=== PATIENT | female | born 1980 ===

== ENCOUNTER 2017-03-24 16:18 | Inpatient (IN) | payer MEDICAID ==
--- NOTE | 2017-03-24 17:36 | ED PDOC ---
HPI: Psych/Substance Abuse Time Seen by Provider: 03/24/17 16:27 Chief Complaint (Nursing): Psychiatric Evaluation Chief Complaint (Provider): Psychiatric Evaluation History Per: Patient Additional Complaint(s): 36 y/o female with past medical history of depression presents to the ED via BLS for psychiatric evaluation. Patient states that she had a cat for 18 years that about a month ago, which is the reason of her depression. Her mother and boyfriend are not being supportive, thus making her feel more depressed. According to EMS patient make suicidal threats but did not mean them. Denies suicidal and homicidal ideation and any further medical complaints. Past Medical History Reviewed: Historical Data, Nursing Documentation, Vital Signs Vital Signs: Last Vital Signs Temp 98.0 F 03/24/17 16:24 Pulse 134 H 03/24/17 16:24 Resp 16 03/24/17 16:24 BP 139/90 03/24/17 16:24 Pulse Ox 98 03/24/17 16:24 - Medical History PMH: Anxiety, Asthma, Back Problems, Cardia Arrhythmia, Depression, Seizures Denies: HIV, Chronic Kidney Disease - Surgical History Surgical History: No Surg Hx - Family History Family History: States: Unknown Family Hx - Social History Current smoker - smoking cessation education provided: No (Never smoked) Alcohol: None Drugs: Denies - Home Medications Home Medications: Ambulatory Orders Medication Instructions Recorded Fexofenadine HCl [Deirdre NF] 180 mg PO DAILY 03/07/15 Albuterol Sulfate [Proair Hfa] 2 puff IH PRN 03/08/15 Budesonide/Formoterol Fumarate 2 puff IH DAILY 03/08/15 [Symbicort 80-4.5 Mcg Inhaler] QUEtiapine [SEROquel] 25 mg PO HS #0 tab 03/09/15 - Allergies Allergies/Adverse Reactions: Allergies Allergy/AdvReac Type Severity Reaction Status Date / Time tramadol Allergy DIZZINESS Verified 03/24/17 16:34 Review of Systems ROS Statement: Except As Marked, All Systems Reviewed And Found Negative (As per HPI, otherwise negative) Constitutional: Negative for: Fever, Chills Psych: Positive for: Depression. Negative for: Suicidal ideation (homicidal ideation) Physical Exam - Reviewed Nursing Documentation Reviewed: Yes Vital Signs Reviewed: Yes - Physical Exam Appears: Positive for: Non-toxic, In Acute Distress Head Exam: Positive for: ATRAUMATIC, NORMAL INSPECTION, NORMOCEPHALIC Skin: Positive for: Normal Color, Warm, Dry Eye Exam: Positive for: Normal appearance ENT: Positive for: Normal ENT Inspection Neck: Positive for: Normal Cardiovascular/Chest: Positive for: Regular Rate, Rhythm. Negative for: Murmur Respiratory: Positive for: Normal Breath Sounds. Negative for: Accessory Muscle Use, Respiratory Distress Back: Positive for: Normal Inspection Neurologic/Psych: Positive for: Alert, Oriented (x3), Gait, Other (Patient is depressed and is crying). Negative for: Facial Droop - Laboratory Results Result Diagrams: 03/24/17 22:14 03/24/17 22:14 - ECG O2 Sat by Pulse Oximetry: 98 (RA) Pulse Ox Interpretation: Normal Medical Decision Making Medical Decision Making: Time: 17:55 Plan: Lorazepam 1mg PO Reevaluation 19:00 Pt reports feeling better after ativan. 20:50 Pt has been evaluated by crisis. No disposition has been provided. 20:55 Discussed with Jessica, renal social worker. Pt is going to be offered admission. 21:45 Pt declined admission and will be referred to [facility]. Labs ordered. 23:55 Jessica states she will re-evaluate if patient would like to sign in yet. 00:00 Endorsed pending evaluation by [facility]. Scribe Attestation: Documented by Unruly Rivera acting as a scribe for DEWEY Younger. MD Puente Attestation: All medical record entries made by the Scribe were at my direction and personally dictated by me. I have reviewed the chart and agree that the record accurately reflects my personal performance of the history, physical exam, medical decision making, and the department course for this patient. I have also personally directed, reviewed, and agree with the discharge instructions and disposition. Disposition - Clinical Impression Clinical Impression: Depression - Patient ED Disposition Is Patient to be Admitted: Transfer of Care - Disposition Disposition: Transfer of Care Disposition Time: 23:52 Condition: STABLE Forms: [facility] (Vietnamese)
[2017-03-24 22:17] LABS: HEMATOCRIT 39.4 % (34.0-47.0); MEAN CELL VOLUME 85.7 fl (81.0-99.0); MEAN CORPUSCULAR HEMOGLOBIN 27.7 pg (27.0-31.0); MEAN CORPUSCULAR HGB CONC 32.3 g/dL (33.0-37.0); RED CELL DISTRIBUTION WIDTH 15.3 % (11.5-14.5); WHITE BLOOD COUNT 9.8 K/uL (4.8-10.8)
[2017-03-24 22:27] LABS: ALB/GLOB RATIO 1.6 (1.0-2.1); ALCOHOL SERUM < 10 mg/dl (0-10); ALKALINE PHOSPHATASE 76 U/L (38-126); ALT/SGPT 45 U/L (9-52); AST/SGOT 28 U/L (14-36); BILIRUBIN,TOTAL 0.6 mg/dl (0.2-1.3); BLOOD UREA NITROGEN 15 mg/dl (7-17); CALCIUM 9.6 mg/dL (8.4-10.2); CARBON DIOXIDE 19 mmol/L (22-30); CHLORIDE 106 mmol/L (98-107); GFR AFRICAN-AMERICAN > 60; GLUCOSE,RANDOM 67 mg/dL (65-105); SODIUM 142 mmol/l (132-148); TOTAL PROTEIN 8.4 G/DL (6.3-8.2)
[2017-03-24 23:22] LABS: URINE BACTERIA RARE (<OCC); URINE BILIRUBIN NEGATIVE (NEGATIVE); URINE BLOOD MODERATE (NEGATIVE); URINE COLOR YELLOW (YELLOW); URINE GLUCOSE (UA) NEG (Normal); URINE KETONE 80 mg/dL (NEGATIVE); URINE LEUKOCYTE ESTERASE NEG Leu/uL (Negative); URINE PROTEIN 30 mg/dL (NEGATIVE); URINE UROBILINOGEN 0.2-1.0 mg/dL (0.2-1.0); WBC URINE 2 /hpf (0-5)
[2017-03-24 23:23] LABS: RBC URINE 5 /hpf (0-3)
[2017-03-25 00:41] VITALS: O2SAT 100
[2017-03-25] MEDS ORDERED: Magnesium Hydroxide Susp 30 ml UD PO PRN (00:54)
[2017-03-25] MEDS ORDERED: DiphenhydrAMINE 50 mg/ml Inj IM PRN (00:54)
--- NOTE | 2017-03-25 01:18 | PCM.BM ---
<Stephanie Braden - Last Filed: 03/25/17 01:16> Treatment Plan Problems - Problems identified on initial assessmt hopelessness/helplessness Date Initiated: 03/25/17 Time Initiated: Assessment reference: NA Status: Active Social Isolation Date Initiated: 03/25/17 Time Initiated: :18 Assessment reference: NA Treatment assets and liabiliti Patient Assests: cooperative, ADL independent, negotiates basic needs, cognitively intact Patient Liabilities: substance abuse - Milieu Protocol Maintain good personal hygiene: daily Encourage regular showers, daily Remind patient to perform daily oral care, daily Assist patient to perform ADL's Conduct patient checks and document Observation sheet: Q15 minutes Maintain personal safety: every shift Educate patient to report safety concerns to staff, every shift Monitor environment for contraband/sharps Medication safety: Monitor for expected outcome, potential side effects: every shift, Assess barriers to learning: every shift, Assess readiness for medication education: every shift <Edouard Velez J - Last Filed: 03/26/17 15:43> Family Contact Family involvement: Famliy/SO not involved Family contact: Patient declines to allow family contact at present Family contact name: Pt refused. - Outside Agency Agency 1 Agency contact name: Dr. Calvo [facility] Agency contact number: [phone] - Goals for Treatment Patient goals for treatment: Pt did not have goals as she felt that we were holding her without any options. Pt's goal is to return home. Discharge/Continuing Care - Education Needs Education Needs: Patient Medication, Patient Coping Skills, Patient Community resources, Patient Personal Hygiene/Grooming, Patient Aftercare Safety Plan - Discharge Discharge Criteria: Tolerates medication w/o severe side effects, Free of Suicidal thoughts, Free of paranoid thoughts, Free of agitation, Normal sleep pattern, Ability to care for self, Reduction of target symptoms Discharge to:: Home - Treatment Team Participation Was Patient/Family/SO present at Treatment Team Meeting: Yes
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
--- NOTE | 2017-03-25 19:00 | CARD ---
APPROVED REPORT EKG Measurement Heart [id number] <Conclusion> Normal sinus rhythm Possible Left atrial enlargement Borderline ECG
[2017-03-26 08:01] LABS: T4 8.46 ug/dl (5.5-11.0)
[2017-03-26 08:15] LABS: THYROID STIMULATING HORMONE 0.8 mIU/ML (0.46-4.68)
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
[2017-03-26] MEDS: Lidocaine 5% Patch TD SCH (21:13)
[2017-03-27] MEDS: Lidocaine 5% Patch TD SCH (10:50)
--- NOTE | 2017-03-27 19:51 | PCM.PYCHPN ---
Psychiatric Progress Note - Psychiatric Progress Note Patient seen today, length of contact: pt evalauted discussed with team chart reviewed Problems Identified/Issues Discussed: feeling depressed after of cat reportedly first episode of dealing with , reports feeling better on sertraline 150mg po day , tearful, crying, reported panic Medical Problems: per chart Diagnostic Results: per psychiatry per medicine per nursing per social work Medication Change: Yes (increase sertraline to 150mg po day, continue remerone 7.5mg po hs) Medical Record Reviewed: Yes Consults ordered or reviewed: per chart Mental Status Examination - Cognitive Function Orientation: Person, Place, Situation Attention: WNL Concentration: WNL Association: WN Fund of Knowledge: [facility] Decription of patient's judgement and insights: impaired - Mood Mood: Depressed, Anxious - Affect Affect: Constricted, Depressed - Speech Speech: Soft - Formal Thought Process Formal Thought Process: Paranoia, Circumstantial - Suicidal Ideation Suicidal Ideation: No - Homicidal Ideation Homicidal Ideation: No Goal/Treatment Plan - Goal/Treatment Plan Need for Continued Stay: Severe depression anxiety, Discharge may exacerbated symptoms Progress Toward Problem(s) and Goals/Treatment Plan: inpt milieu increase sertraline to 150mg po am starting 03/27/17 continue remeron 7.5mg po hs for sleep adjust rx per status\ discharge planning in progress Estimated Date of D/C: 03/30/17 - Smoking Cessation Smoking Cessation Initiated: No Reason for not providing: deferred
[2017-03-28] MEDS: Lidocaine 5% Patch TD SCH (08:58)
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
[2017-03-29] MEDS: Lidocaine 5% Patch TD SCH (09:49)
[2017-03-29] MEDS ORDERED: Petrolatum UD PAK TOP PRN ×2 (13:15→15:34)
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
[2017-03-30] MEDS: Lidocaine 5% Patch TD SCH (09:19)
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
[2017-03-31] MEDS: Lidocaine 5% Patch TD SCH (09:35)
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
[2017-04-01] MEDS: Lidocaine 5% Patch TD SCH (09:51)
--- NOTE | 2017-04-01 14:51 | PCM.PYCHPN ---
Psychiatric Progress Note - Psychiatric Progress Note Patient seen today, length of contact: pt evalauted discussed with team chart reviewed Patient Chief Complaint: I will try to get back on my feet Problems Identified/Issues Discussed: PT SON EVALUATION APPEARS CALMER LESS ANXIOUS PT PRESENTING WITH MORE POSITIVE ATTITUDE AND ABLE TO VERBALIZE SOME OF THE COPING SKILLS WITH HER CURRENT STRESSORS DENIED SIDE EFFECTS OF MEDICATIONS DENIED S/HI Medical Problems: high level of cholesterol and triglycerides DSM 5 Symptoms Update: MAJOR DEPRESSION PTSD Medication Change: No Medical Record Reviewed: Yes Mental Status Examination - Cognitive Function Orientation: Person, Place, Situation, Time Attention: WNL Concentration: WNL Association: WNL Fund of Knowledge: WN - Mood Mood: Anxious, Neutral - Affect Affect: Constricted, Depressed - Speech Speech: Soft - Formal Thought Process Formal Thought Process: Circumstantial Psychotic Thoughts and Behaviors: DENIED ANY CURRENT PERCEPTUAL DISTURBANCES, NON ELICITED - Suicidal Ideation Suicidal Ideation: No - Homicidal Ideation Homicidal Ideation: No Goal/Treatment Plan - Goal/Treatment Plan Need for Continued Stay: Severe depression anxiety, Discharge may exacerbated symptoms Progress Toward Problem(s) and Goals/Treatment Plan: continue with zoloft 150mg remeron 7.5mg klonopin 0.50 mg tid prn for anxiety CBT group and supportive therapy Estimated Date of D/C: 04/01/17
[2017-04-02] MEDS: Lidocaine 5% Patch TD SCH (09:13)
[2017-04-02 12:07] VITALS: BP 118/79; PULSE 106; RESP 20; TEMP 96
--- NOTE | 2017-04-02 13:58 | PCM.PYCHDC ---
Mental Status Examination - Mental Status Examination Orientation: Person, Place, Situation Memory: Intact Mood: Neutral Affect: Broad Speech: Appropriate Attention: WNL Concentration: WNL Association: WNL Fund of Knowledge: WNL Formal Thought Process: No Impairment Description of patient's judgement and insight: fair insight and judgement Psychotic Thoughts and Behaviors: DENIED ANY CURRENT PERCEPTUAL DISTURBANCES, NON ELICITED Suicidal Ideation: No Current Homicidal Ideation?: No Discharge Summary - Discharge Note Reason for Hospitalization: pt with previous psychiatric disgnosis of agorophobia and depression, reportedly currently compliant with her medications, zoloft and klonopin and fiollowing up with private psychiatrist, pt indicated that she has been increasingly depressed since her cat due to oral cancer, pt reported decreased sleep with early insomnia, decreased appetite with 26 lb wait loss in past two months, low energy crying spells increase panic attacks passive suicidal ideations no plan denied homicidal ideations, denied manic or psychotic symptoms, denied substance use, utox positive for cannabis Consultations:: List each consultation separately and include: 1. Reason for request. 2. Findings. 3. Follow-up Consultations: family practice Summary of Hospital Course include:: 1. Description of specific treatment plan utilized for patients during their course of treatmen. 2. Summarize the time- course for resolution of acute symptoms and/or regressed behaviors. 3. Describe issues identified and worked on during hospitalization. 4. Describe medication utilized. 5. Describe medical problems identified and treated. 6. Reassessment of suicide risk Summary of Hospital Course: pt on admission was started on remeron 7.5mg qhs, zoloft 150mg and klonopin 0.25mg prn tid for anxiety CBT group and supportive therapy was provided pt was compliant with treatment no reported side effects of medications on discharge mental ststus was stable denied suicidal or homicidal ideations denied perceptual disturbances at current mental status pt not danger to self or others - Final Diagnosis (DSM 5) Condition upon Discharge: STABLE Disposition: Trans to Other Acute Care Hosp Follow-up Treatment Plan: continue with zoloft 150mg remeron 7.5mg klonopin 0.50 mg tid prn for anxiety CBT group and supportive therapy Prescriptions/Medication Reconciliation: clonazePAM [Klonopin] 0.25 mg PO BID 3 Days #7 tab Mirtazapine [Remeron] 7.5 mg PO HS 30 Days #15 tab Sertraline [Zoloft] 150 mg PO DAILY 30 Days #90 tab - Antipsychotic Medications Pt discharged on 2 or more routine antipsychotic medications: No
== END 2017-04-02 16:45 | disposition short-term general hospital (02) | DRG 426 ==
LOC: H.ER 16:18 → H.ERHOLD 03-25 00:05 → H.PSYCH 03-25 00:53
PROVIDERS: ADMIT Psychiatry & Neurology Psychiatry; ATTEND Psychiatry & Neurology Psychiatry
PROC: GZHZZZZ Group Psychotherapy (ICD-10-PCS; principal; 2017-03-25)
PROC: GZ58ZZZ Individual Psychotherapy, Cognitive-Behavioral (ICD-10-PCS; 2017-03-25)
PROC: GZ56ZZZ Individual Psychotherapy, Supportive (ICD-10-PCS; 2017-03-25)
DX: F32.9 Major depressive disorder, single episode, unspecified (principal); R45.851 Suicidal ideations; F43.10 Post-traumatic stress disorder, unspecified; F40.01 Agoraphobia with panic disorder; J45.909 Unspecified asthma, uncomplicated; F12.90 Cannabis use, unspecified, uncomplicated; Z88.6 Allergy status to analgesic agent

== ENCOUNTER 2017-04-11 14:04 | Emergency (ER) | payer MEDICAID ==
[2017-04-11 14:10] VITALS: BP 115/47; PULSE 84; RESP 20; TEMP 97.1; O2SAT 98
--- NOTE | 2017-04-11 14:33 | ED PDOC ---
HPI: General Adult Time Seen by Provider: 04/11/17 14:09 Chief Complaint (Nursing): Cough, Cold, Congestion Chief Complaint (Provider): Cough, Cold, Congestion History Per: Patient History/Exam Limitations: no limitations Onset/Duration Of Symptoms: Days (x 4 to 5 days) Current Symptoms Are (Timing): Still Present Additional Complaint(s): Lizzeth is a 36 year old female who presents to the emergency department complaining of green sputum production associated with productive cough for 4-5 days. Patient states she took [id number] medications without relief. Denies fever, hemoptysis, recent travels, sick contacts, and chest pain. PMD: No family Provider Past Medical History Reviewed: Historical Data, Nursing Documentation, Vital Signs Vital Signs: Last Vital Signs Temp 97.1 F L 04/11/17 14:06 Pulse 84 04/11/17 14:06 Resp 20 04/11/17 14:06 BP 115/47 L 04/11/17 14:06 Pulse Ox 98 04/11/17 14:38 - Medical History PMH: Anxiety, Asthma, Back Problems, Cardia Arrhythmia, Depression, Seizures ( adverse reaction to tramadol) Denies: Diabetes, Hepatitis, HIV, HTN, Chronic Kidney Disease, Sexually Transmitted Disease - Surgical History Surgical History: No Surg Hx - Family History Family History: States: Unknown Family Hx - Social History Current smoker - smoking cessation education provided: No Ex-Smoker (has not smoked in the last 12 months): No - Home Medications Home Medications: Ambulatory Orders Medication Instructions Recorded Fexofenadine HCl [Deirdre NF] 03/25/17 Mirtazapine [Remeron] 7.5 mg PO HS 30 Days #15 tab 03/30/17 Sertraline [Zoloft] 150 mg PO DAILY 30 Days #90 tab 03/30/17 clonazePAM [Klonopin] 0.25 mg PO BID 3 Days #7 tab 03/30/17 Albuterol HFA [Ventolin HFA 90 2 puff IH [id number] PRN #90 puff 04/11/17 mcg/actuation (8 g)] Azithromycin [Zithromax] 250 mg PO DAILY #6 tab 04/11/17 Promethazine DM [Phenergan DM 5 - 10 ml PO Q8 PRN #120 ml 04/11/17 Syrup] - Allergies Allergies/Adverse Reactions: Allergies Allergy/AdvReac Type Severity Reaction Status Date / Time tramadol Allergy DIZZINESS Verified 04/11/17 14:06 Review of Systems ROS Statement: Except As Marked, All Systems Reviewed And Found Negative Constitutional: Negative for: Fever Cardiovascular: Negative for: Chest Pain Respiratory: Positive for: Cough, Sputum (Green). Negative for: Hemoptysis Physical Exam - Reviewed Nursing Documentation Reviewed: Yes Vital Signs Reviewed: Yes - Physical Exam ENT: Positive for: Normal ENT Inspection Cardiovascular/Chest: Positive for: Regular Rate, Rhythm. Negative for: Murmur Respiratory: Positive for: Normal Breath Sounds. Negative for: Respiratory Distress Neurologic/Psych: Positive for: Alert, Oriented (x 3) - ECG O2 Sat by Pulse Oximetry: 98 (RA) Pulse Ox Interpretation: Normal Medical Decision Making Medical Decision Making: Upon provider evaluation patient is medically stable, and requires no further treatment in the ED at this time. Patient will be discharged with Rx for Ventolin, Zithromax, and Phenergan DM. Counseling was provided and all questions were answered regarding diagnosis and need for follow up with PCP. There is agreement to discharge plan. Return if symptoms persist or worsen. Scribe Attestation: Documented by Aashish Lozano, acting as a scribe for Billy Morales PA-C Provider Scribe Attestation: All medical record entries made by the Scribe were at my direction and personally dictated by me. I have reviewed the chart and agree that the record accurately reflects my personal performance of the history, physical exam, medical decision making, and the department course for this patient. I have also personally directed, reviewed, and agree with the discharge instructions and disposition. Disposition - Clinical Impression Clinical Impression: Acute bronchitis - Patient ED Disposition Is Patient to be Admitted: No - Disposition Referrals: Isidoro Copeland [Outside] Disposition: Routine/Home Disposition Time: 14:17 Condition: STABLE Additional Instructions: Follow up with PMD in 2 days for further evaluation. Return to ED immediately if symptoms persist or any other concerns arise. Prescriptions: Albuterol HFA [Ventolin HFA 90 mcg/actuation (8 g)] 2 puff IH [id number] PRN #90 puff PRN Reason: Cough Azithromycin [Zithromax] 250 mg PO DAILY #6 tab Promethazine DM [Phenergan DM Syrup] 5 - 10 ml PO Q8 PRN #120 ml PRN Reason: Cough Instructions: Acute Bronchitis (ED) Forms: [facility] (Malian) Print Language: OCCITAN
== END 2017-04-11 14:31 | disposition home or self-care (01) ==
LOC: H.ER 14:04
DX: J20.9 Acute bronchitis, unspecified (principal); F32.9 Major depressive disorder, single episode, unspecified; F41.9 Anxiety disorder, unspecified; J45.909 Unspecified asthma, uncomplicated; Z87.891 Personal history of nicotine dependence

== ENCOUNTER 2017-06-23 19:47 | Emergency (ER) | payer MEDICAID ==
[2017-06-23 20:36] VITALS: BP 119/85; PULSE 93; RESP 16; TEMP 97.8; O2SAT 98
--- NOTE | 2017-06-23 21:37 | ED PDOC ---
HPI: Back Time Seen by Provider: 06/23/17 20:43 Chief Complaint (Nursing): Back Pain Chief Complaint (Provider): Back Pain History Per: Patient History/Exam Limitations: no limitations Onset/Duration Of Symptoms: Worse Since (today) Current Symptoms Are (Timing): Still Present Previous Symptoms: Back Pain Additional Complaint(s): Patient is a 36 y/o female who presents with pain to the right lower back, ongoing for weeks but worsened today. States on 06/10 she fell down 3 stairs and has had the pain since then. No head injury or LOC. Patient reports taking Tylenol for pain control, with no relief. Last dose was 3:30PM this afternoon. Pain is now radiating down her right thigh. Of note, patient has a history of herniated discs in the lumbar spine and has had low back pain in the past, but it has never been right-sided. Otherwise: (-) numbness or weakness of lower extremities, (-) incontinence, (-) vomiting, (-) fever, (-) dysuria, (-) hematuria/frequency/urgency (-) nausea (-) vomiting (-)abdominal pain (-) saddle anesthesia. No prior history of cancer. PMD: Vladislav Rangel Past Medical History Reviewed: Historical Data, Nursing Documentation, Vital Signs Vital Signs: Last Vital Signs Temp 97.8 F 06/23/17 20:32 Pulse 93 H 06/23/17 20:32 Resp 16 06/23/17 20:32 BP 119/85 06/23/17 20:32 Pulse Ox 98 06/23/17 20:32 - Medical History PMH: Anxiety, Asthma, Back Problems, Cardia Arrhythmia, Depression, Seizures ( adverse reaction to tramadol) Denies: Diabetes, Hepatitis, HIV, HTN, Chronic Kidney Disease, Sexually Transmitted Disease - Surgical History Surgical History: No Surg Hx - Family History Family History: States: Unknown Family Hx - Home Medications Home Medications: Ambulatory Orders Medication Instructions Recorded Fexofenadine HCl [Deirdre NF] 03/25/17 Mirtazapine [Remeron] 7.5 mg PO HS 30 Days #15 tab 03/30/17 Sertraline [Zoloft] 150 mg PO DAILY 30 Days #90 tab 03/30/17 clonazePAM [Klonopin] 0.25 mg PO BID 3 Days #7 tab 03/30/17 Albuterol HFA [Ventolin HFA 90 2 puff IH [id number] PRN #90 puff 04/11/17 mcg/actuation (8 g)] Azithromycin [Zithromax] 250 mg PO DAILY #6 tab 04/11/17 Promethazine DM [Phenergan DM 5 - 10 ml PO Q8 PRN #120 ml 04/11/17 Syrup] Cyclobenzaprine [Cyclobenzaprine 10 mg PO Q8 #12 tab 06/23/17 HCl] Meloxicam [Mobic] 15 mg PO DAILY #10 tab 06/23/17 - Allergies Allergies/Adverse Reactions: Allergies Allergy/AdvReac Type Severity Reaction Status Date / Time tramadol Allergy DIZZINESS Verified 04/11/17 14:06 Review of Systems ROS Statement: Except As Marked, All Systems Reviewed And Found Negative Constitutional: Negative for: Fever, Chills, Sweats Cardiovascular: Negative for: Chest Pain, Palpitations Respiratory: Negative for: Cough, Shortness of Breath Gastrointestinal: Negative for: Nausea, Vomiting, Abdominal Pain Genitourinary Female: Negative for: Dysuria, Incontinence, Hematuria Musculoskeletal: Positive for: Back Pain, Leg Pain Neurological: Negative for: Weakness, Numbness Physical Exam - Reviewed Nursing Documentation Reviewed: Yes Vital Signs Reviewed: Yes - Physical Exam Comments: GENERAL APPEARANCE: Patient is awake, alert, oriented x 3, in no acute distress. Ambulatory in ED with steady gait. SKIN: Warm, dry; (-) cyanosis. EYES: (-) conjunctival pallor. ENMT: Mucous membranes moist. NECK: Supple (-) tenderness, (-) stiffness, (-) lymphadenopathy. CHEST AND RESPIRATORY: (-) rales, (-) rhonchi, (-) wheezes; breath sounds equal bilaterally. HEART AND CARDIOVASCULAR: (-) irregularity; (-) murmur, (-) gallop. ABDOMEN AND GI: Soft; (-) tenderness; (-) palpable mass. BACK: (+) right paralumbar tenderness, (+) right sciatic notch tenderness, (-) midline tenderness, (-) CVA tenderness. EXTREMITIES: (-) deformity. Distal pulses good bilaterally. NEURO AND PSYCH: Mental status as above. Intact sensation bilaterally; normal strength in extension of the knees, plantar and dorsiflexion of the toes. - ECG O2 Sat by Pulse Oximetry: 98 (RA) Pulse Ox Interpretation: Normal Medical Decision Making Medical Decision Making: Clinical Impression: Acute on chronic back pain Time: 21:26 Initial Plan: * Flexeril 10 mg PO (Patient states she is not driving home) * Toradol 30 mg IM * Reevaluation 2229 On re-evaluation, patient reports slight improvement of pain and is requesting additional medication. 5mg PO Valium administered. 0 On re-evaluation, patient reports improvement of symptoms, ambulatory in ED with steady gait. On exam, patient remains AAOx3, in no acute distress. On exam , neck is supple, lungs CTA, cardiac RRR, abdomen is soft and non-tender, neuro exam shows no focal findings. Diagnostic results d/w the patient in great detail. Dx of acute on chronic back pain, sciatica, radicular pain s/p fall d/w the patient. Based on history, exam and diagnostic results plan will be for discharge and outpatient follow up. Advised to follow up with primary care physician/ortho in 1-2 days without fail. Advised to take medication as prescribed. Return to the emergency room at any time for any new or worsening symptoms. Patient states she fully agrees with and understands discharge instructions. States that she agrees with the plan and disposition. Verbalized and repeated discharge instructions and plan. I have given the patient opportunity to ask any additional questions. Scribe Attestation: Documented by Magi Quiles, acting as a scribe for Alysha Iyer PA-C Provider Scribe Attestation: All medical record entries made by the Scribe were at my direction and personally dictated by me. I have reviewed the chart and agree that the record accurately reflects my personal performance of the history, physical exam, medical decision making, and the department course for this patient. I have also personally directed, reviewed, and agree with the discharge instructions and disposition. Disposition - Clinical Impression Clinical Impression: Back pain, Sciatica of right side, Fall - Patient ED Disposition Is Patient to be Admitted: No Counseled Patient/Family Regarding: Diagnosis, Need For Followup, Rx Given - Disposition Referrals: Colt Buchanan III, MD [Staff Provider] - Disposition: Routine/Home Disposition Time: 23:25 Condition: FAIR Prescriptions: Cyclobenzaprine [Cyclobenzaprine HCl] 10 mg PO Q8 #12 tab Meloxicam [Mobic] 15 mg PO DAILY #10 tab Instructions: Sciatica, Low Back Pain in Adults Forms: [facility] (Kinyarwanda) Print Language: TURKISH - POA Present On Arrival: None
[2017-06-23] MEDS ORDERED: Oxycodone/Acetaminophen 5/325 mg Tab PO STA (21:39)
== END 2017-06-23 23:32 | disposition home or self-care (01) ==
LOC: H.ER 19:47
DX: M54.41 Lumbago with sciatica, right side (principal)
CPT/HCPCS: 81025; 96372; 99283; J1885

== ENCOUNTER 2017-12-11 01:06 | Emergency (ER) | payer MEDICAID ==
[2017-12-11 01:45] VITALS: O2SAT 100
[2017-12-11 03:22] LABS: BASO % 0.1 % (0.0-2.0); HEMOGLOBIN 12.3 g/dL (12.0-16.0); LYMPH # 1.6 K/uL (1.0-4.3); LYMPH % 9.5 % (20.0-40.0); MEAN CELL VOLUME 87.5 fl (81.0-99.0); MEAN CORPUSCULAR HEMOGLOBIN 29.3 pg (27.0-31.0); MEAN CORPUSCULAR HGB CONC 33.5 g/dL (33.0-37.0); MEAN PLATELET VOLUME 9.1 fl (7.2-11.7); MONO # 0.6 K/uL (0.0-0.8); MONO % 3.6 % (0.0-10.0); NEUT % 86.8 % (50.0-75.0); NRBC % 0.1 % (0.0-0.0); PLATELET COUNT 276 K/uL (130-400); RBC 4.18 Mil/uL (3.80-5.20); WHITE BLOOD COUNT 17.3 K/uL (4.8-10.8)
[2017-12-11 03:28] LABS: ALB/GLOB RATIO 1.5 (1.0-2.1); ALBUMIN 4.6 g/dL (3.5-5.0); ALT/SGPT 13 U/L (9-52); AST/SGOT 35 U/L (14-36); BLOOD UREA NITROGEN 10 mg/dl (7-17); CALCIUM 9.1 mg/dL (8.4-10.2); GFR NON-AFRICAN AMERICAN > 60
--- NOTE | 2017-12-11 03:48 | ED PDOC ---
HPI: Psych/Substance Abuse <Eligio Marin - Last Filed: 12/11/17 06:36> Chief Complaint (Provider): Alcohol Ingestion History Per: Patient, EMS History/Exam Limitations: no limitations Onset/Duration Of Symptoms: Mins (prior to arrival) Current Symptoms Are (Timing): Still Present Additional Complaint(s): 36 year old female presents to the ED via EMS for evaluation s/p accidentally falling down the stairs prior to arrival. Patient admits to drinking, and as per EMS, she also admitted to being suicidal, but now the pt denies si, hi, and hallucinations. Her main complaint is a headache, and she is unsure if she lost consciousness. PMD: none provided <Billy Morales - Last Filed: 12/12/17 13:17> Time Seen by Provider: 12/11/17 01:17 Chief Complaint (Nursing): Alcohol Ingestion Past Medical History Vital Signs: Last Vital Signs Temp 98.0 F 12/11/17 01:18 Pulse 126 H 12/11/17 01:18 Resp 12/11/17 01:18 BP 130/85 12/11/17 01:18 Pulse Ox 100 12/11/17 05:28 <Eligio Marin - Last Filed: 12/11/17 06:36> Reviewed: Historical Data, Nursing Documentation, Vital Signs Vital Signs: Last Vital Signs Temp 98.0 F 12/11/17 01:18 Pulse 126 H 12/11/17 01:18 Resp 18 12/11/17 01:18 BP 130/85 12/11/17 01:18 Pulse Ox 100 12/11/17 01:18 - Medical History PMH: Anxiety, Asthma, Back Problems, Cardia Arrhythmia, Depression, Seizures ( adverse reaction to tramadol) Denies: Diabetes, Hepatitis, HIV, HTN, Chronic Kidney Disease, Sexually Transmitted Disease - Family History Family History: States: Unknown Family Hx - Social History Alcohol: Social <Billy Morales - Last Filed: 12/12/17 13:17> - Home Medications Home Medications: Ambulatory Orders Medication Instructions Recorded Fexofenadine HCl [Deirdre NF] 03/25/17 Mirtazapine [Remeron] 7.5 mg PO HS 30 Days #15 tab 12/19/17 Sertraline [Zoloft] 150 mg PO DAILY 30 Days #90 tab 03/30/17 clonazePAM [Klonopin] 0.25 mg PO BID 3 Days #7 tab 03/30/17 Albuterol HFA [Ventolin HFA 90 2 puff IH [id number] PRN #90 puff 04/11/17 mcg/actuation (8 g)] Azithromycin [Zithromax] 250 mg PO DAILY #6 tab 04/11/17 Promethazine DM [Phenergan DM 5 - 10 ml PO Q8 PRN #120 ml 04/11/17 Syrup] Cyclobenzaprine [Cyclobenzaprine 10 mg PO Q8 #12 tab 06/23/17 HCl] Meloxicam [Mobic] 15 mg PO DAILY #10 tab 06/23/17 Naproxen [Naprosyn] 500 mg PO Q12H #20 tab 12/11/17 - Allergies Allergies/Adverse Reactions: Allergies Allergy/AdvReac Type Severity Reaction Status Date / Time tramadol Allergy DIZZINESS Verified 12/11/17 01:16 Review of Systems ROS Statement: Except As Marked, All Systems Reviewed And Found Negative Neurological: Positive for: Headache Psych: Negative for: Suicidal ideation (and homicidal ideation), Other ( hallucinations) <Billy Morales - Last Filed: 12/12/17 13:17> Physical Exam - Reviewed Nursing Documentation Reviewed: Yes Vital Signs Reviewed: Yes - Physical Exam Appears: Positive for: No Acute Distress Head Exam: Negative for: ATRAUMATIC (left occipital scalp: 2 1/2 inch jagged laceration without active bleeding) Skin: Positive for: Normal Color, Warm, Dry Eye Exam: Positive for: Normal appearance ENT: Positive for: Normal ENT Inspection Neck: Positive for: Normal, Painless ROM, Supple Cardiovascular/Chest: Positive for: Tachycardia Respiratory: Positive for: Normal Breath Sounds Gastrointestinal/Abdominal: Positive for: Normal Exam, Soft. Negative for: Tenderness Back: Positive for: Normal Inspection Extremity: Positive for: Normal ROM Neurologic/Psych: Positive for: Alert, Oriented <Billy Morales - Last Filed: 12/12/17 13:17> - Laboratory Results Result Diagrams: 12/11/17 02:49 12/11/17 02:49 <Eligio Marin - Last Filed: 12/11/17 06:36> - Laboratory Results Result Diagrams: 12/11/17 02:49 12/11/17 02:49 - ECG O2 Sat by Pulse Oximetry: 100 (RA) Pulse Ox Interpretation: Normal - Progress ED Course And Treament: On re-evaluation, pt. is more alert but still with slurred speech. AOx3. States she has been feeling depressed which has been intermittent since January when her cats . Denies SI/HI, hallucinations at this time. Also states she does not remember how she sustained the laceration. Denies abd pain, fever, dysuria, hematuria. <Billy Morales - Last Filed: 12/12/17 13:17> Medical Decision Making Medical Decision Makin:00 Pt care endorsed from Dr. Marin to Dr. Forman pending sobriety, crisis evaluation, and reevaluation. Scribe Attestation: Documented by Maribel Gonzalez, acting as a scribe for Eligio Marin MD. Provider Scribe Attestation: All medical record entries made by the Scribe were at my direction and personally dictated by me. I have reviewed the chart and agree that the record accurately reflects my personal performance of the history, physical exam, medical decision making, and the department course for this patient. I have also personally directed, reviewed, and agree with the discharge instructions and disposition. <Eligio Marin - Last Filed: 12/11/17 06:36> Medical Decision Making: Time: 224 Initial Impression: ETOH, head injury, scalp laceration, possible suicidal ideation Initial Plan: --CT head w/o contrast --Alcohol serum --CMP --Drug screen --HCG, Qualitative --CBC with differential --1:1 --Crisis eval Scribe Attestation: Documented by Maribel Gonzalez, acting as a scribe for Billy Morales PA-C. Provider Scribe Attestation: All medical record entries made by the Scribe were at my direction and personally dictated by me. I have reviewed the chart and agree that the record accurately reflects my personal performance of the history, physical exam, medical decision making, and the department course for this patient. I have also personally directed, reviewed, and agree with the discharge instructions and disposition. <Billy Morales - Last Filed: 12/12/17 13:17> Procedures - Time-Out Type of Procedure: Laceration repair Site of Procedure: L occipital scalp Correct Patient (with visual ID + MR# on ID Band): Yes Correct Procedure: Yes Correct Site Marked: Yes PA/Tech: Andrew - Laceration/Wound Repair Laceration repair Wound Length (cm): 7.5 Wound's Depth, Shape: superficial Wound Explored: clean Irrigated w/ Saline (ccs): 100 Betadine Prep?: Yes Anesthesia: Lidocaine w/ Epi Volume Anesthetic (ccs): 4 Wound Repaired With: [place] (5) Wound Complexity: Simple <Billy Morales - Last Filed: 12/12/17 13:17> Disposition <Eligio Marin - Last Filed: 12/11/17 06:36> - Patient ED Disposition Is Patient to be Admitted: Transfer of Care (Dr. Marin continued care at the end of PA's shift pending sobriety and crisis evaluation) - Disposition Disposition: Transfer of Care Disposition Time: 06:00 <Billy Morales - Last Filed: 12/12/17 13:17> - Clinical Impression Clinical Impression: Alcohol abuse, Head injury, Laceration - Disposition Referrals: [facility] [Outside] Condition: FAIR Prescriptions: Naproxen [Naprosyn] 500 mg PO Q12H #20 tab Instructions: Laceration Repair, Closed Head Injury, Alcohol Abuse and Alcoholism (DC) Forms: [facility] (Persian)
[2017-12-11] MEDS ORDERED: Tdap Vaccine 0.5 ml Vial (10-64 yrs) IM ONE ×2 (04:39→05:02)
[2017-12-11 04:58] LABS: BANDS 1 % (0-2); LYMPHOCYTE 8 % (20-50); MONOCYTE 2 % (0-10); NEUTROPHIL 89 % (42-75); PLATELET ESTIMATE NORMAL (NORMAL); TOTAL CELLS COUNTED 100
[2017-12-11 04:59] LABS: ANISOCYTOSIS SLIGHT; HYPOCHROMIC SLIGHT; STOMATOCYTES SLIGHT
[2017-12-11] MEDS ORDERED: Potassium Chloride 20 mEq ER Tab PO ONE ×3 (07:25→08:49)
--- NOTE | 2017-12-11 07:54 | CT ---
Date of service: 12/11/2017 PROCEDURE: CT HEAD WITHOUT CONTRAST. HISTORY: trauma COMPARISON: None available. TECHNIQUE: Axial computed tomography images were obtained through the head/brain without intravenous contrast. Radiation dose: Total exam DLP = mGy-cm. This CT exam was performed using one or more of the following dose reduction techniques: Automated exposure control, adjustment of the mA and/or kV according to patient size, and/or use of iterative reconstruction technique. FINDINGS: HEMORRHAGE: No intracranial hemorrhage. BRAIN: No mass effect or edema. No atrophy or chronic microvascular ischemic changes. VENTRICLES: Unremarkable. No hydrocephalus. CALVARIUM: Unremarkable. PARANASAL SINUSES: Unremarkable as visualized. No significant inflammatory changes. MASTOID AIR CELLS: Unremarkable as visualized. No inflammatory changes. OTHER FINDINGS: Small right choroidal fissure cyst. . IMPRESSION: No intracranial hemorrhage.
[2017-12-11 08:21] LABS: URINE BACTERIA OCC (<OCC); URINE BILIRUBIN NEGATIVE (NEGATIVE); URINE BLOOD MODERATE (NEGATIVE); URINE CLARITY SLIGHTY-CLOUDY (Clear); URINE COLOR YELLOW (YELLOW); URINE GLUCOSE (UA) NEG (Normal); URINE LEUKOCYTE ESTERASE NEG Leu/uL (Negative); URINE PROTEIN NEGATIVE (NEGATIVE); URINE UROBILINOGEN 0.2-1.0 mg/dL (0.2-1.0)
--- NOTE | 2017-12-11 08:28 | ED PDOC ---
- Laboratory Results Result Diagrams: 12/11/17 02:49 12/11/17 02:49 - ECG O2 Sat by Pulse Oximetry: 100 - Progress Re-evaluation Time: 09:36 Condition: Improved (Awake alert oriented x 3 No focal neuro deficits. Denies SI /HI) Disposition - Clinical Impression Clinical Impression: Alcohol abuse, Head injury, Laceration - POA Present On Arrival: None - Disposition Referrals: [facility] [Outside] Disposition: Routine/Home Disposition Time: 09:37 Condition: FAIR Prescriptions: Naproxen [Naprosyn] 500 mg PO Q12H #20 tab Instructions: Closed Head Injury, Alcohol Abuse and Alcoholism (DC), Laceration Repair Forms: [facility] [employer] [facility] (Czech)
[2017-12-11 08:52] LABS: BARBITURATES, UR NEGATIVE (NEGATIVE); BENZODIAZEPINES, UR POSITIVE (NEGATIVE); OPIATES, UR NEGATIVE (NEGATIVE); PHENCYCLIDINE, UR NEGATIVE (NEGATIVE)
[2017-12-11 12:38] VITALS: BP 110/56; PULSE 67; RESP 14; TEMP 98.1
== END 2017-12-11 12:30 | disposition home or self-care (01) ==
LOC: H.ER 01:06
DX: S09.90XA Unspecified injury of head, initial encounter (principal); Z23 Encounter for immunization; W10.9XXA Fall (on) (from) unspecified stairs and steps, initial encounter; S01.01XA Laceration without foreign body of scalp, initial encounter; F10.10 Alcohol abuse, uncomplicated; J45.909 Unspecified asthma, uncomplicated

== ENCOUNTER 2017-12-20 20:09 | Emergency (ER) | payer MEDICAID ==
[2017-12-20 20:17] VITALS: BP 123/65; TEMP 98.4
[2017-12-20] MEDS ORDERED: Naproxen 500 MG TAB PO STA (20:38)
--- NOTE | 2017-12-20 20:55 | ED PDOC ---
HPI: Wound Care - HPI Time Seen by Provider: 12/20/17 20:19 Chief Complaint (Nursing): Suture/Staple Removal Chief Complaint (Provider): Staple removal History Per: Patient Exam Limitations: no limitations Onset/Duration Of Symptoms: Days (x9) Additional Complaint(s): Lizzeth Sanabria, a 37 year old female with past medical history of asthma, presents to the emergency room for staple removal and wound evaluation. Patient was seen on 12/11 s/p fall and striking her head on concrete. She states her CT was negative at the time and 5 obie were placed. Patient denies any complications with wound, fever, chills or drainage. She notes mild continued pain to staple site and has not taken medication prior to arrival. Tetanus up to date. No other complaints. PMD: Dr. Vladislav Rangel Past Medical History Reviewed: Historical Data, Nursing Documentation, Vital Signs Vital Signs: Last Vital Signs Temp 98.4 F 12/20/17 20:15 Pulse 100 H 12/20/17 20:15 Resp 16 12/20/17 20:15 BP 123/65 12/20/17 20:15 Pulse Ox 99 12/20/17 20:15 - Medical History PMH: Anxiety, Asthma, Back Problems, Cardia Arrhythmia, Depression, Seizures ( adverse reaction to tramadol) - Family History Family History: States: Unknown Family Hx - Immunization History Hx Tetanus Toxoid Vaccination: Yes - Home Medications Home Medications: Ambulatory Orders Medication Instructions Recorded Fexofenadine HCl [Deirdre NF] 03/25/17 Mirtazapine [Remeron] 7.5 mg PO HS 30 Days #15 tab 03/30/17 Sertraline [Zoloft] 150 mg PO DAILY 30 Days #90 tab 03/30/17 clonazePAM [Klonopin] 0.25 mg PO BID 3 Days #7 tab 03/30/17 Albuterol HFA [Ventolin HFA 90 2 puff IH [id number] PRN #90 puff 04/11/17 mcg/actuation (8 g)] Azithromycin [Zithromax] 250 mg PO DAILY #6 tab 04/11/17 Promethazine DM [Phenergan DM 5 - 10 ml PO Q8 PRN #120 ml 04/11/17 Syrup] Cyclobenzaprine [Cyclobenzaprine 10 mg PO Q8 #12 tab 03/14/18 HCl] Meloxicam [Mobic] 15 mg PO DAILY #10 tab 06/23/17 Naproxen [Naprosyn] 500 mg PO Q12H #20 tab 12/11/17 Naproxen 500 mg PO BID PRN #20 tab 12/20/17 - Allergies Allergies/Adverse Reactions: Allergies Allergy/AdvReac Type Severity Reaction Status Date / Time tramadol Allergy DIZZINESS Verified 12/20/17 20:14 Review of Systems ROS Statement: Except As Marked, All Systems Reviewed And Found Negative Constitutional: Negative for: Fever, Chills, Other (wound drainage) Musculoskeletal: Positive for: Other (mild pain to wound site) Physical Exam - Reviewed Nursing Documentation Reviewed: Yes Vital Signs Reviewed: Yes - Physical Exam Comments: GENERAL APPEARANCE: Patient is awake, alert, oriented x 3, no acute distress. Resting comfortably. SKIN: Warm, dry; (-) cyanosis. NECK: Supple, FROM HEAD: [address] to healing, stellate wound to left parietal scalp with no evidence of wound infection (+) mild tenderness (-) swelling, (-) ecchymosis (-) erythema (-) drainage (-) warmth. Otherwise scalp nontender (-) hematoma. NEURO AND PSYCH: Mental status as above. Gait: steady. Speech: clear. (-) facial asymmetry CHEST AND RESPIRATORY: (-) wheezing; (-) rales, (-) rhonchi, (-) rub; breath sounds equal bilaterally. HEART AND CARDIOVASCULAR: (-) irregularity - ECG O2 Sat by Pulse Oximetry: 99 (RA) Pulse Ox Interpretation: Normal Medical Decision Making Medical Decision Making: Time: 20:15 Impression: wound check and staple removal Initial Plan: --Tylenol 650 mg PO --[place] removed without difficulty by SHANA Iyer; patient education on wound care. 2044 Repeat HR: 94 On re-evaluation, patient reports improvement of symptoms. On exam, patient remains AAOx3, in no acute distress. Lungs clear to auscultation, cardiac RRR, repeat neuro exam shows no focal findings. VSS, stable for discharge. Lab/Diagnostic results d/w the patient in great detail. Diagnosis of wound check , staple removal d/w the patient. Based on history, exam and diagnostic results, plan will be for outpatient follow up. Patient states she fully agrees with and understands discharge instructions. States that she agrees with the plan and disposition. Verbalized and repeated discharge instructions and plan. I have given the patient opportunity to ask any additional questions. Scribe Attestation: Documented by Lyssa Love, acting as a scribe for Alysha Iyer PA-C. Provider Scribe Attestation: All medical record entries made by the Scribe were at my direction and personally dictated by me. I have reviewed the chart and agree that the record accurately reflects my personal performance of the history, physical exam, medical decision making, and the department course for this patient. I have also personally directed, reviewed, and agree with the discharge instructions and disposition. Disposition - Clinical Impression Clinical Impression: Removal of obie, Scalp laceration, Visit for wound check - Patient ED Disposition Is Patient to be Admitted: No Counseled Patient/Family Regarding: Studies Performed, Diagnosis, Need For Followup, Rx Given - Disposition Referrals: Vladislav Rangel MD [Family Provider] - Disposition: Routine/Home Disposition Time: 20:50 Condition: STABLE Additional Instructions: The emergency medical care you received today was directed at your acute symptoms. If you were prescribed any medication, please fill it and take as directed. It may take several days for your symptoms to resolve. Return to the Emergency Department if your symptoms worsen, do not improve, or if you have any other problems. Please contact your doctor in 2 days for re-evaluation and follow up / or call one of the physicians/clinics you have been referred to that are listed on the Patient Visit Information form that is included in your discharge packet. Bring any paperwork you were given at discharge with you along with any medications you are taking to your follow up visit. Our treatment cannot replace ongoing medical care by a primary care provider (PCP) outside of the emergency department. Prescriptions: Naproxen 500 mg PO BID PRN #20 tab PRN Reason: Pain, Moderate (4-7) Instructions: Wound Care, Staple Removal Forms: [facility] (Irish) Print Language: GREEK - POA Present On Arrival: None
[2017-12-20 21:06] VITALS: PULSE 94; RESP 18
[2017-12-21 14:59] VITALS: O2SAT 99
== END 2017-12-20 21:08 | disposition home or self-care (01) ==
LOC: H.ER 20:09
DX: Z48.02 Encounter for removal of sutures (principal)

== ENCOUNTER 2018-02-28 13:34 | Emergency (ER) | payer MEDICAID ==
[2018-02-28] MEDS ORDERED: Albuterol-Ipratrop 3 mg / 0.5 (3 ml) UD INH STA (14:42)
[2018-02-28] MEDS ORDERED: Sodium Chloride 0.9% 1,000 ML IV STA (14:53)
[2018-02-28] MEDS ORDERED: Albuterol-Ipratrop 3 mg / 0.5 (3 ml) UD ONE (15:23)
[2018-02-28 15:34] LABS: BASO % 0.4 % (0.0-2.0); EOS % 0.1 % (0.0-4.0); HEMOGLOBIN 12.9 g/dL (12.0-16.0); LYMPH % 19.3 % (20.0-40.0); MEAN CELL VOLUME 90.2 fl (81.0-99.0); MEAN CORPUSCULAR HEMOGLOBIN 29.2 pg (27.0-31.0); MEAN CORPUSCULAR HGB CONC 32.3 g/dL (33.0-37.0); MONO # 0.4 K/uL (0.0-0.8); MONO % 3.4 % (0.0-10.0); NEUT % 76.8 % (50.0-75.0); NRBC % 0.1 % (0.0-0.0); RBC 4.43 Mil/uL (3.80-5.20); RED CELL DISTRIBUTION WIDTH 14.1 % (11.5-14.5); WHITE BLOOD COUNT 10.5 K/uL (4.8-10.8)
[2018-02-28 15:45] LABS: ALB/GLOB RATIO 1.4 (1.0-2.1); ALBUMIN 4.7 g/dL (3.5-5.0); ALT/SGPT 16 U/L (9-52); AST/SGOT 24 U/L (14-36); BLOOD UREA NITROGEN 13 mg/dl (7-17); CALCIUM 9.6 mg/dL (8.4-10.2); GFR NON-AFRICAN AMERICAN > 60
--- NOTE | 2018-02-28 15:45 | RAD ---
Date of service: 02/28/2018 HISTORY: Chest pain, cough COMPARISON: 03/07/2015 TECHNIQUE: Chest PA and lateral FINDINGS: LUNGS: No active pulmonary disease. PLEURA: No significant pleural effusion identified. No pneumothorax apparent. CARDIOVASCULAR: No aortic atherosclerotic calcification present. Normal cardiac size. No pulmonary vascular congestion. OSSEOUS STRUCTURES: No significant abnormalities. VISUALIZED UPPER ABDOMEN: Normal. OTHER FINDINGS: None. IMPRESSION: No active disease. No significant interval change compared to the prior examination(s).
--- NOTE | 2018-02-28 17:01 | ED PDOC ---
HPI: CCC, URI, Sore Throat Time Seen by Provider: 02/28/18 14:16 Chief Complaint (Nursing): Cough, Cold, Congestion Chief Complaint (Provider): Cough, SOB History Per: Patient History/Exam Limitations: no limitations Have you had recent travel within the past 21 days to any of the following countries: [place], [place], [place] or [place]?: No Onset/Duration Of Symptoms: Days Current Symptoms Are (Timing): Still Present Additional Complaint(s): 37 yo female with history of asthma presents for evaluation of productive cough x 2 weeks. Pt states it has been worse the last 2 days. Pt states she has not had a fever but her cough is productive with yellow phlegm. Pt states that she has not had her albuterol and next appointment with PMD is march. Pt reports chest pain with cough. Past Medical History Reviewed: Historical Data, Nursing Documentation, Vital Signs Vital Signs: Last Vital Signs Temp 98.1 F 02/28/18 14:04 Pulse 108 H 02/28/18 15:08 Resp 16 02/28/18 15:08 BP 130/80 02/28/18 14:04 Pulse Ox 100 02/28/18 15:08 - Medical History PMH: Anxiety, Asthma, Back Problems, Cardia Arrhythmia, Depression, Seizures (adverse reaction to tramadol) Denies: Diabetes, Hepatitis, HIV, HTN, Chronic Kidney Disease, Sexually Transmitted Disease - Family History Family History: States: Unknown Family Hx - Immunization History Hx Tetanus Toxoid Vaccination: Yes - Home Medications Home Medications: Ambulatory Orders Medication Instructions Recorded Fexofenadine HCl [Deirdre NF] 03/25/17 Mirtazapine [Remeron] 7.5 mg PO HS 30 Days #15 tab 03/30/17 Sertraline [Zoloft] 150 mg PO DAILY 30 Days #90 tab 03/30/17 clonazePAM [Klonopin] 0.25 mg PO BID 3 Days #7 tab 03/30/17 Albuterol HFA [Ventolin HFA 90 2 puff IH [id number] PRN #90 puff 04/11/17 mcg/actuation (8 g)] Azithromycin [Zithromax] 250 mg PO DAILY #6 tab 04/11/17 Promethazine DM [Phenergan DM 5 - 10 ml PO Q8 PRN #120 ml 04/11/17 Syrup] Cyclobenzaprine [Cyclobenzaprine 10 mg PO Q8 #12 tab 06/23/17 HCl] Meloxicam [Mobic] 15 mg PO DAILY #10 tab 06/23/17 Naproxen [Naprosyn] 500 mg PO Q12H #20 tab 12/11/17 Naproxen 500 mg PO BID PRN #20 tab 12/20/17 Albuterol HFA [Ventolin HFA 90 1 puff IH BID PRN #1 unit 02/28/18 mcg/actuation (8 g)] Azithromycin 250 mg PO DAILY #6 tab 02/28/18 - Allergies Allergies/Adverse Reactions: Allergies Allergy/AdvReac Type Severity Reaction Status Date / Time tramadol Allergy SHORTNESS Verified 02/28/18 14:01 OF BREATH Review of Systems ROS Statement: Except As Marked, All Systems Reviewed And Found Negative Constitutional: Negative for: Fever, Chills Cardiovascular: Positive for: Chest Pain. Negative for: Palpitations, Orthopnea Respiratory: Positive for: Cough, Shortness of Breath Gastrointestinal: Negative for: Nausea, Vomiting, Abdominal Pain, Diarrhea Physical Exam - Reviewed Nursing Documentation Reviewed: Yes Vital Signs Reviewed: Yes - Physical Exam Appears: Positive for: Well, Non-toxic, No Acute Distress Head Exam: Positive for: ATRAUMATIC, NORMAL INSPECTION, NORMOCEPHALIC Skin: Positive for: Normal Color, Warm, DRY Eye Exam: Positive for: Normal appearance ENT: Positive for: Normal ENT Inspection Neck: Positive for: Normal, Painless ROM Cardiovascular/Chest: Positive for: Regular Rate, Rhythm Respiratory: Positive for: Wheezing. Negative for: Accessory Muscle Use, Respiratory Distress Back: Positive for: Normal Inspection Extremity: Positive for: Normal ROM Neurologic/Psych: Positive for: Alert, Oriented - Laboratory Results Result Diagrams: 02/28/18 15:22 02/28/18 15:22 - ECG O2 Sat by Pulse Oximetry: 100 Pulse Ox Interpretation: Normal Medical Decision Making Medical Decision Making: Labs normal CXR normal. Disposition - Clinical Impression Clinical Impression: Asthma, Acute bronchitis - Patient ED Disposition Is Patient to be Admitted: No - Disposition Referrals: [facility] [Outside] Disposition: Routine/Home Disposition Time: 17:03 Condition: STABLE Prescriptions: Albuterol HFA [Ventolin HFA 90 mcg/actuation (8 g)] 1 puff IH BID PRN #1 unit PRN Reason: Wheezing Azithromycin 250 mg PO DAILY #6 tab Instructions: Acute Bronchitis, Adult (DC)
[2018-03-01 00:24] VITALS: BP 131/83; PULSE 99; RESP 18; TEMP 98.3; O2SAT 100
== END 2018-02-28 17:28 | disposition home or self-care (01) ==
LOC: H.ER 13:34
DX: J45.909 Unspecified asthma, uncomplicated (principal); J20.9 Acute bronchitis, unspecified
CPT/HCPCS: 71046; 80053; 81025; 85025; 85378; 87804; 94640; 96361; 96374; 99284; J1885; J7030